=== PATIENT | male | born 1950 | race Caucasian/White ===

== ENCOUNTER 2017-09-05 07:19 | Day surgery (SDC) | payer BC, MEDICARE ==
[2017-09-04 09:25] VITALS: BMI 36.2
--- NOTE | 2017-09-05 00:30 | HP ---
DATE OF ADMISSION: 09/05/2017 HISTORY OF PRESENT ILLNESS: This is a 67-year-old male who comes for colonoscopy for colon cancer s creening. The patient has no specific GI symptoms. ALLERGIES: PENICILLIN. MEDICAL ILLNESSES: 1. Allergic rhinitis. 2. Arthritis. 3. Peripheral neuropathy. 4. Prostatectomy. PHYSICAL EXAMINATION: VITAL SIGNS: Pulse is 70, blood pressure 130/80. HEENT: Conjunctivae clear. CARDIOVASCULAR: First and second heart sound. LUNGS: Clear to auscultation. ABDOMEN: Soft to palpate. No organomegaly. No tenderness. No masses. ADMITTING DIAGNOSIS: A 67-year-old male who comes for colonoscopy for colon cancer screen ing.
[2017-09-05] MEDS ORDERED: Propofol 200 MG/20 ML VIAL ONE (09:08)
[2017-09-05] MEDS ORDERED: Lidocaine 1% PF 5 ML VIAL ONE (09:08)
--- NOTE | 2017-09-05 10:04 | OP ---
DATE OF PROCEDURE: 09/05/2017 SURGEON: Michael Azar M.D. OPERATIVE PROCEDURE: Colonoscopy with biopsy. PREOPERATIVE DIAGNOSIS: Colon cancer screening. POSTOPERATIVE DIAGNOSES: 1. Sessile ascending colon polyp. 2. Sessile rectal polyp. 3. Sessile sigmoid polyp. 4. Occasional sigmoid diverticular disease. PROCEDURE NOTE: The patient was placed on his left lateral position and was given sedation by [facility]. A rectal exam was done before the scope was advanced into the rectum. No lesions were felt on rectal exam. A [employer]ax video colonoscope was introduced into the rectum and advanced a ll the way into the cecum. The prep was excellent. The mucosa appeared normal throughout the colon with normal vascular pattern. The appendiceal orifice, ileocecal valve, and cecum, no pathology se en. A sessile ascending colon polyp removed with biopsy forceps. The hepatic flexure, transverse c olon, splenic flexure, and descending colon, no pathology seen. A sessile sigmoid polyp and also se ssile rectal polyp removed with biopsy forceps. He does have occasional diverticula in the sigmoid colon area. DISCHARGE PLANNING: This is 67-year-old male came for a colonoscopy for colon cancer screening. He underwent biopsy of 3 polyps. DISCHARGE RECOMMENDATIONS: 1. High-fiber diet. 2. To call me if he develops abdominal pain, hematochezia, fever. 3. Come back in 2 weeks.
== END 2017-09-05 10:30 | disposition home or self-care (01) ==
LOC: SDC 07:19
PROVIDERS: ATTEND Internal Medicine Gastroenterology
PROC: 0DBN8ZX Excision of Sigmoid Colon, Via Natural or Artificial Opening Endoscopic, Diagnostic (ICD-10-PCS; principal; 2017-09-05)
PROC: 0DBK8ZX Excision of Ascending Colon, Via Natural or Artificial Opening Endoscopic, Diagnostic (ICD-10-PCS; principal; 2017-09-05)
PROC: 0DBP8ZX Excision of Rectum, Via Natural or Artificial Opening Endoscopic, Diagnostic (ICD-10-PCS; principal; 2017-09-05)
DX: Z12.11 Encounter for screening for malignant neoplasm of colon (principal); D12.2 Benign neoplasm of ascending colon; D12.5 Benign neoplasm of sigmoid colon; K63.5 Polyp of colon; K57.30 Diverticulosis of large intestine without perforation or abscess without bleeding; J30.9 Allergic rhinitis, unspecified; M19.90 Unspecified osteoarthritis, unspecified site; G62.9 Polyneuropathy, unspecified; Z88.0 Allergy status to penicillin; Z90.79 Acquired absence of other genital organ(s)
CPT/HCPCS: 88305; J2001; J2704